=== PATIENT | female | born 1965 | race Two or more races ===

== ENCOUNTER 2016-07-13 09:07 | Emergency (ER) | payer MEDICAID ==
[~2016-07-13] VITALS: Ht 162.6 cm; Wt 135.2 kg
[2016-07-13 09:26] VITALS: BP 132/87
[2016-07-13] MEDS ORDERED: cefTRIAXone SOD 1,000 MG VL IM ONE (10:00)
[2016-07-13] MEDS ORDERED: KETOROLAC TROMETH 60MG/2ML VIAL IM ONE (10:00)
== END 2016-07-13 10:35 | disposition home or self-care (01) ==
LOC: ER 09:07
DX: J03.90 Acute tonsillitis, unspecified (principal); H66.93 Otitis media, unspecified, bilateral; L73.9 Follicular disorder, unspecified; I10 Essential (primary) hypertension; E11.9 Type 2 diabetes mellitus without complications; M19.90 Unspecified osteoarthritis, unspecified site
CPT/HCPCS: 96372; 99284; J0696; J1885